=== PATIENT | male | born 1980 | race African-American/Black ===

== ENCOUNTER 2021-06-22 08:52 | Inpatient (IN) | payer OTHER ==
[2021-06-22] MEDS ORDERED: LACTATED RINGERS SOLUTION 1,000 ML/1,000 ML INFUS.BAG IV STA (09:27)
[2021-06-22] MEDS ORDERED: FAMOTIDINE 20 MG/50 ML IVPB 20 MG/50 ML MG IVPB ONE ×2 (09:27→09:31)
[2021-06-22 10:16] LABS: INR 1.26 (0.83-1.09); PROTHROMBIN TIME (PATIENT) 14.5 SEC (9.7-13.0)
[2021-06-22 10:27] LABS: CHLORIDE 97 mmol/L (98-107); SODIUM 132 mmol/L (136-145)
[2021-06-22 10:30] LABS: ALBUMIN 2.8 g/dl (3.4-5.0); ANION GAP 6 MMOL/L (8-16); BASO % 1.3 % (0-2.0); BLOOD UREA NITROGEN 21.6 mg/dL (7-18); CO2 29 mmol/L (21-32); EOS % 1.6 % (0-4.5); GLUCOSE,RANDOM 95 mg/dL (74-106); HEMATOCRIT 35.8 % (35.4-49); HEMOGLOBIN 13.1 GM/dL (11.7-16.9); LIPASE 288 U/L (73-393); LYMPH % 19.7 % (8-40); MCH 36.3 pg (25.7-33.7); MCHC 36.6 g/dl (32.0-35.9); MEAN PLT VOLUME 7.1 fl (7.5-11.1); MONO % 16.4 % (3.8-10.2); PLATELET COUNT 387 10^3/uL (134-434); RBC 3.62 M/mm3 (4.00-5.60); RDW 19.3 % (11.9-15.9); RETICULOCYTES 2.49 % (0.5-1.5)
[2021-06-22 10:31] LABS: BILIRUBIN,DIRECT 13.5 mg/dL (0.0-0.2)
[2021-06-22 10:33] LABS: CREATININE 1.9 mg/dL (0.55-1.3)
[2021-06-22 10:35] LABS: TOT PROT 9.4 g/dl (6.4-8.2)
[2021-06-22 10:36] LABS: ALK PHOS 291 U/L (45-117); LDH 336 U/L (87-246)
[2021-06-22 10:44] LABS: BILIRUBIN,TOTAL 15.8 mg/dL (0.2-1); SGOT/AST 1405 U/L (15-37); SGPT/ALT 1074 U/L (13-61)
[2021-06-22 11:43] LABS: EPI CELLS 4 /uL (0-25.1); HYALINE CASTS 2 /uL (0-3.1); PH,URINE 5.5 (5.0-8.0); URINE APPEARANCE CLEAR; URINE BILIRUBIN 3+ (NEGATIVE); URINE COLOR DK YELLOW; URINE GLUCOSE (UA) NEGATIVE (NEGATIVE); URINE KETONE NEGATIVE (NEGATIVE); URINE LEUK ESTERASE TRACE (NEGATIVE); URINE NITRITE POSITIVE (NEGATIVE); URINE PROTEIN 2+ (NEGATIVE); URINE RBC 28 /uL (0-23.9); URINE WBC 16 /uL (0-25.8)
[2021-06-22 12:34] LABS: YEAST NEGATIVE (NEGATIVE)
[2021-06-22] MEDS ORDERED: AMPICILLIN NA/SULBACTAM NA 3 GM in SODIUM CHLORIDE 100 ML IVPB ONE (13:16)
[2021-06-22] MEDS: LACTATED RINGERS SOLUTION 1,000 ML/1,000 ML INFUS.BAG IV SCH ×2 (13:31→22:03)
[2021-06-22] MEDS ORDERED: ONDANSETRON 8 MG TABLET (FP) PO PRN (14:15)
[2021-06-22] MEDS: AMOX TR/POT CLAV 875MG/125MG TABLETS (FP) PO SCH (22:04)
[2021-06-22] MEDS: FAMOTIDINE 20 MG/50 ML IVPB 20 MG/50 ML MG IVPB SCH (22:04)
[2021-06-23] MEDS: LACTATED RINGERS SOLUTION 1,000 ML/1,000 ML INFUS.BAG IV SCH (06:55)
[2021-06-23] MEDS: AMOX TR/POT CLAV 875MG/125MG TABLETS (FP) PO SCH (08:25)
[2021-06-23 08:28] LABS: CALCIUM 8.9 mg/dL (8.5-10.1); INR 1.23 (0.83-1.09); PROTHROMBIN TIME (PATIENT) 14.2 SEC (9.7-13.0)
[2021-06-23 08:29] LABS: BLOOD UREA NITROGEN 18.4 mg/dL (7-18)
[2021-06-23 08:31] LABS: CREATININE 1.7 mg/dL (0.55-1.3)
[2021-06-23 08:32] LABS: BILIRUBIN,TOTAL 12.9 mg/dL (0.2-1); TOT PROT 7.7 g/dl (6.4-8.2)
[2021-06-23 09:02] LABS: ALBUMIN 2.2 g/dl (3.4-5.0)
[2021-06-23 09:08] LABS: BASO % 1.1 % (0-2.0); EOS % 3.4 % (0-4.5); HEMOGLOBIN 11.1 GM/dL (11.7-16.9); LYMPH % 28.6 % (8-40); MCH 36.5 pg (25.7-33.7); MEAN CELL VOLUME 98.5 fl (80-96); MEAN PLT VOLUME 7.4 fl (7.5-11.1); MONO % 11.7 % (3.8-10.2); NEUT % 55.2 % (42.8-82.8); PLATELET COUNT 322 10^3/uL (134-434); RBC 3.05 M/mm3 (4.00-5.60); RDW 18.8 % (11.9-15.9); WHITE BLOOD COUNT 7.1 K/mm3 (4.0-10.0)
[2021-06-23] MEDS: FAMOTIDINE 20 MG/50 ML IVPB 20 MG/50 ML MG IVPB SCH (09:55)
[2021-06-23] MEDS ORDERED: CEFTRIAXONE 1 GM in DEXTROSE 5%-WATER - 50 ML IVPB SCH (11:15)
[2021-06-23] MEDS ORDERED: cefTRIAXone SODIUM 1 GM VIAL ONE (12:34)
[2021-06-23] MEDS ORDERED: DEXTROSE 5%-WATER - 50 ML IVPB ONE (12:34)
[2021-06-23] MEDS ORDERED: HEPARIN NA (PORCINE) 5,000 UNITS/ML 1ML VIAL SQ SCH (14:00)
[2021-06-23] MEDS ORDERED: ACETYLCYSTEINE INJECTION 20% 7,600 MG in DEXTROSE 5%-WATER - 1,000 ML IVPB ONE (16:00)
[2021-06-23 16:48] VITALS: BMI 23.4
[2021-06-24 03:34] VITALS: BP 110/64; PULSE 73; TEMP 99.3
[2021-06-24 07:08] LABS: RUBELLA ANTIBODY,IGM <20.0 AU/mL (0.0-19.9)
[2021-06-27 16:08] LABS: ATYPICAL pANCA <1:20 titer (Neg:<1:20); C-ANCA <1:20 titer (Neg:<1:20)
[2021-06-28 16:08] LABS: SOLUBLE LIVER ANTIGEN ABS IgG 0.9 units (0.0-20.0)
== END 2021-06-24 03:23 | disposition short-term general hospital (02) ==
LOC: JER 08:52 → JERBED 13:21 → J5S 17:34
PROVIDERS: ADMIT Internal Medicine; ATTEND Internal Medicine
DX: K75.9 Inflammatory liver disease, unspecified (principal); I10 Essential (primary) hypertension; N39.0 Urinary tract infection, site not specified; E80.6 Other disorders of bilirubin metabolism; E86.0 Dehydration; R79.89 Other specified abnormal findings of blood chemistry; N17.9 Acute kidney failure, unspecified; E87.1 Hypo-osmolality and hyponatremia; E86.1 Hypovolemia; R94.31 Abnormal electrocardiogram [ECG] [EKG]; R16.0 Hepatomegaly, not elsewhere classified; R63.4 Abnormal weight loss; Z68.23 Body mass index [BMI] 23.0-23.9, adult
CPT/HCPCS: 36415; 71045-TC-FY; 74176-TC; 74181-TC; 76705-TC; 80053; 80307; 81003; 82105; 82140; 82248; 82525; 82550; 82570; 82728; 82787; 83036; 83516; 83520; 83540; 83550; 83615; 83690; 84156; 84484; 85025; 85045; 85610; 85651; 86038; 86140; 86256; 86376; 86704; 86705; 86708; 86709; 86762; 86803; 87040; 87086; 87340; 87517; 87799; 93005; 93010; 99285-25; C9803-CS; U0003; U0005